=== PATIENT | female | born 1980 | race Caucasian/White ===

== ENCOUNTER 2022-06-15 09:13 | Emergency (ER) | payer OTHER ==
[2022-06-15] MEDS ORDERED: PREDNISONE 20MG20 MG PO (12:18)
[2022-06-15] MEDS ORDERED: CYCLOBENZAPRINE10 MG PO (12:18)
[2022-06-15] MEDS ORDERED: ULTRAM50 MG PO (12:18)
== END 2022-06-15 12:32 | disposition home or self-care (01) ==
LOC: FER 09:13
DX: M47.896 Other spondylosis, lumbar region (principal); F17.210 Nicotine dependence, cigarettes, uncomplicated; Z28.310 Unvaccinated for COVID-19
CPT/HCPCS: 72131; J1885